=== PATIENT | female | born 1970 | race Caucasian/White ===

== ENCOUNTER 2017-04-15 13:45 | Outpatient (CLI) | payer OTHER ==
--- NOTE | 2017-04-15 17:56 | MRI Preliminary Report ---
Exam: MRI Thoracic Spine W/WO Impressions: 1. Findings of multiple marrow lesions in the thoracic spine, without enhancement suggestive of treat ed lymphoma, chronic moderate compression deformity at T9 without retropulsion. No canal stenosis. Pa tient status post laminectomy T9-T10 to the T12 level, with myelomalacia present within the thoracic cord at T10-T11 as described. No evidence for active disease, findings on the current study suggests treated disease. Otherwise no significant canal stenosis or neural foramina narrowing. [facility] SITE ID: [id number]
--- NOTE | 2017-04-15 17:59 | MRI Report ---
EXAM: MRI THORACIC SPINE WITHOUT AND WITH CONTRAST EXAM DATE: 04/15/2017 03:21 PM. CLINICAL HISTORY: History of lymphoma, chronic lower thoracic, low back pain. COMPARISONS: None. TECHNIQUE: Multiplanar, multisequence T1-weighted and fluid-sensitive sequences of the thoracic spine from C7 to L1 before and after administration of intravenous contrast. IV contrast: 8.5 cc Gadavist. Other: None. Findings: Relevant images are indicated (image number, series number). Catering Director imaging of the cervical spine unremarkable including limited evaluation posterior cranial roselia a contents, as well as the cervical cord. Fatty-replaced marrow is seen at T5, T9, T11 levels with mo derate compression deformity of T9, appears chronic. Postcontrast imaging demonstrates no suspicious marrow enhancement, or cord enhancement. Patient status post decompressive laminectomies from T9-T10 to the T12 level. There is focal suspected linear myelomalacia present within the thoracic cord at T1 1 measuring at least 0.7 cm diameter dorsally, in maximum dimension. There is also associated at leas t mild cord atrophy. Remaining thoracic cord demonstrates no abnormal signal. There is no significant canal stenosis or neural foraminal narrowing present. There is no thoracic paraspinal mass or collec tion. Surrounding skeletal muscle is unremarkable. There is no milton-facet edema. Impressions: 1. Findings of multiple marrow lesions in the thoracic spine, without enhancement suggestive of treat ed lymphoma, chronic moderate compression deformity at T9 without retropulsion. No canal stenosis. Pa tient status post laminectomy T9-T10 to the T12 level, with myelomalacia present within the thoracic cord at T10-T11 as described. No evidence for active disease, findings on the current study suggests treated disease. Otherwise no significant canal stenosis or neural foramina narrowing. [facility] Referring Provider Line: [phone] SITE ID: [id number]
== END 2017-04-15 13:46 | disposition home or self-care (01) ==
LOC: DI 13:45
DX: G95.89 Other specified diseases of spinal cord (principal); M43.8X4 Other specified deforming dorsopathies, thoracic region
CPT/HCPCS: 72157; A9585

== ENCOUNTER 2018-06-25 17:17 | Emergency (ER) | payer SELFPAY ==
[2018-06-25 17:29] VITALS: BP 131/94
--- NOTE | 2018-06-25 17:58 | ED Physician Documentation ---
History of Present Illness - Stated complaint Stated Complaint: PANICK ATTACK - Chief complaint Chief Complaint: General - History obtained from History obtained from: Patient - History of Present Illness Timing: Other (48-year-old woman with a history of anxiety who for the last 4 days has had episodes in the middle the night where she feels like her heart is beating fast and that she is going to . There is no associated chest pain per se. It is worse because she recently had to decrease her propranolol as she is try to make it last longer because her insurance lapsed and she had to divorce her .) Review of Systems Constitutional: denies: Fever, Chills Musculoskeletal: denies: Neck pain, Back pain Neurologic: denies: Syncope Psychiatric: denies: Depressed, Suicidal, Homicidal PD PAST MEDICAL HISTORY - Past Surgical History Past Surgical History: No - Present Medications Home Medications: Ambulatory Orders Medication Instructions Recorded Confirmed ALPRAZolam [Alprazolam] 0.25 mg PO Q4H PRN #15 tablet 06/25/18 Propranolol [Inderal] 10 mg PO BID 06/25/18 06/25/18 Propranolol [Inderal] 10 mg PO BID #90 tablet 06/25/18 - Allergies Allergies/Adverse Reactions: Allergies Allergy/AdvReac Type Severity Reaction Status Date / Time No Known Drug Allergies Allergy Verified 06/25/18 17:44 - Social History Does the pt smoke?: No Smoking Status: Never smoker Does the pt have substance abuse?: No PD ED PE NORMAL - Vitals Vital signs reviewed: Yes - General General: Alert and oriented X 3, No acute distress - Neck Neck: Supple, no meningeal sign, No bony TTP - Cardiac Cardiac: RRR, No murmur - Respiratory Respiratory: No respiratory distress, Clear bilaterally - Extremities Extremities: No edema, No calf tenderness / cord - Neuro Neuro: Alert and oriented X 3, Normal speech Results - Vitals Vitals: Vital Signs - 24 hr 06/25/18 17:25 Temperature 36.2 C L Heart Rate 99 Respiratory 16 Rate Blood Pressure 131/94 H O2 Saturation 100 Oxygen O2 Source Room air - EKG (time done) 1734 Rate: Rate (enter#) (73) Rhythm: NSR [place]: Normal Intervals: Normal [place] QRS: Normal Ischemia: Normal ST segments Computer interpretation: Agree with computer PD MEDICAL DECISION MAKING - ED course ED course: I suspect this is anxiety, she is asymptomatic here without palpitations or findings of ectopy on the monitor. Probably multifactorial because of stressors in her life and having to decrease her propranolol. - Sepsis Event Vital Signs: Vital Signs - 24 hr 06/25/18 17:25 Temperature 36.2 C L Heart Rate 99 Respiratory 16 Rate Blood Pressure 131/94 H O2 Saturation 100 Oxygen O2 Source Room air Departure - Departure Disposition: 01 Home, Self Care Clinical Impression: Palpitations Condition: Good Record reviewed to determine appropriate education?: Yes Instructions: ED Panic Attack Prescriptions: ALPRAZolam [Alprazolam] 0.25 mg PO Q4H PRN #15 tablet PRN Reason: Anxiety Propranolol [Inderal] 10 mg PO BID #90 tablet Comments: Call your doctor to arrange a follow-up appointment, make the next available appointment. In the interim, return anytime if worse or if new symptoms develop. Your blood pressure was elevated today on check into the emergency department. This does not mean that you have hypertension, it is a common phenomenon to come to the emergency department and have elevated blood pressure. I recommend that you see your primary care physician within the week to have it rechecked when you are feeling better.
== END 2018-06-25 18:06 | disposition home or self-care (01) ==
LOC: ED 17:17
DX: R00.2 Palpitations (principal); R03.0 Elevated blood-pressure reading, without diagnosis of hypertension
CPT/HCPCS: 93005; 99283

== ENCOUNTER 2018-08-23 09:33 | Outpatient (CLI) | payer MEDICAID ==
[2018-08-23 13:19] LABS: BASOPHILS # (AUTO) 0.1 10^3/uL (0.0-0.1); BASOPHILS % (AUTO) 1.2 %; EOSINOPHILS # (AUTO) 0.1 10^3/uL (0.0-0.7); EOSINOPHILS % (AUTO) 2.5 %; HGB - HEMOGLOBIN 11.2 g/dL (12.0-16.0); LYMPHOCYTES # (AUTO) 1.1 10^3/uL (1.5-3.5); LYMPHOCYTES % (AUTO) 22.8 %; MEAN CORPUSCULAR HEMOGLOBIN 30.4 pg (27.0-31.0); MEAN CORPUSCULAR VOLUME 89.4 fL (81.0-99.0); MEAN PLATELET VOLUME 8.7 fL (7.9-10.8); MONOCYTES # (AUTO) 0.5 10^3/uL (0.0-1.0); MONOCYTES % (AUTO) 10.2 %; NEUTROPHILS # (AUTO) 3.2 10^3/uL (1.5-6.6); NEUTROPHILS % (AUTO) 63.3 %; PLT - PLATELET COUNT 262 10^3/uL (130-450); RED BLOOD COUNT 3.69 10^6/uL (4.20-5.40); RED CELL DISTRIBUTION WIDTH 13.3 % (12.0-15.0)
[2018-08-23 13:57] LABS: % IRON SATURATION 42 % (20-50); ALBUMIN 4.1 g/dL (3.2-5.5); ALBUMIN/GLOBULIN RATIO 1.3 (1.0-2.2); ALKALINE PHOSPHATASE 54 IU/L (42-121); ALT ALANINE AMINOTRANSFERASE 21 IU/L (10-60); AST ASPARTATE AMINOTRANSFERASE 24 IU/L (10-42); BILIRUBIN,TOTAL 0.7 mg/dL (0.2-1.0); BUN - BLOOD UREA NITROGEN 16 mg/dL (6-20); CALCIUM 8.6 mg/dL (8.5-10.3); CARBON DIOXIDE - CO2 26 mmol/L (21-32); CHLORIDE 104 mmol/L (101-111); CHOL/HDL RATIO 2.7 (<4.4); CHOLESTEROL 172 mg/dL; CREATININE 0.6 mg/dL (0.4-1.0); GFR - MDRD 107 (>89); GLUCOSE 102 mg/dL (70-100); HDL CHOLESTEROL 63 mg/dL; IRON 190 ug/dL (28-170); SODIUM 138 mmol/L (135-145); TOTAL IRON BINDING CAPACITY 448 ug/dL (250-450); TOTAL PROTEIN 7.2 g/dL (6.7-8.2); TRANSFERRIN 320 mg/dL (192-382)
[2018-08-23 14:04] LABS: THYROID STIMULATING HORMONE 0.85 uIU/mL (0.34-5.60)
[2018-08-23 14:10] LABS: FERRITIN 5.7 ng/mL (11.0-306.8)
[2018-08-23 14:26] LABS: LDL CHOLESTEROL,DIRECT 95 mg/dL; LDLD/HDL RATIO 1.5 (<4.4)
== END 2018-08-23 09:34 ==
LOC: LAB.WCP 09:33
PROVIDERS: ATTEND Physician Assistant Medical
DX: Z00.00 Encounter for general adult medical examination without abnormal findings (principal); D50.9 Iron deficiency anemia, unspecified
CPT/HCPCS: 36415; 80053; 80061; 82728; 83540; 83721; 84443; 84466; 85025

== ENCOUNTER 2018-09-13 12:41 | Outpatient (CLI) | payer MEDICAID ==
--- NOTE | 2018-09-23 09:41 | Mammography Report ---
Reason: BILAT SCREEN w OSWALDO Procedure Date: 09/13/2018 Accession Number: [id number] / [id number] Procedure: ANUM - Screening Mammo w/Oswaldo CPT Code: FULL RESULT: EXAM: Screening Mammo w/Oswaldo DATE: 09/13/2018 1:33 PM CLINICAL HISTORY: 48-year-old female with history of late childbearing and history of benign breast biopsy. TECHNIQUE: Bilateral CC and MLO views were obtained. COMPARISON: 12/29/2016, 01/16/2016 FINDINGS: The breasts demonstrate heterogeneously dense fibroglandular parenchyma bilaterally. No suspicious masses, clustered microcalcifications, or regions of architectural distortion are identified. IMPRESSION: Negative examination RECOMMENDATION: Routine annual screening unless otherwise clinically indicated. BIRADS CATEGORY 1: Negative STANDARD QUALIFYING STATEMENTS: 1. This examination was not reviewed with the aid of Computer-Aided Detection (CAD). 2. A negative or benign imaging report should not delay biopsy if clinically suspicious findings are present. Consider surgical consultation if warrented. More than 5% of cancers are not identified by imaging. 3. Dense breasts may obscure an underlying neoplasm. 4. This examination was reviewed with the aid of 3D breast imaging (tomosynthesis).
== END 2018-09-13 12:42 | disposition home or self-care (01) ==
LOC: DI 12:41
PROVIDERS: ATTEND Physician Assistant Medical
DX: Z12.31 Encounter for screening mammogram for malignant neoplasm of breast (principal)
CPT/HCPCS: 77063; 77067

== ENCOUNTER 2018-10-24 08:00 | Outpatient (CLI) | payer MEDICAID | END 2018-10-24 23:59 | disposition home or self-care (01) | LOC: LAB.R 08:00 | PROVIDERS: ATTEND Physician Assistant Medical | DX: R10.13 Epigastric pain (principal) | CPT/HCPCS: 83013 ==

== ENCOUNTER 2018-12-13 09:38 | Outpatient (CLI) | payer MEDICAID ==
--- NOTE | 2018-12-13 14:27 | Ultrasound Report ---
Reason: ABDOMINAL PAIN,RIGHT UPPER QUADRANT,EARLY SATIETY, Procedure Date: 12/13/2018 Accession Number: [id number] / [id number] Procedure: US - Abdomen Limited CPT Code: FULL RESULT: EXAM: ABDOMEN ULTRASOUND LIMITED, RUQ EXAM DATE: 12/13/2018 10:20 AM. CLINICAL HISTORY: Abdominal pain, right upper quadrant, early satiety. COMPARISON: None. TECHNIQUE: Real-time scanning was performed with static images obtained. FINDINGS: Liver: Slightly nodular surface contour with heterogeneous parenchymal echotexture. Right lobe of the liver measures at least 19.2 cm. Main portal vein flow: Hepatopetal. Gallbladder: Mobile cholelithiasis with normal wall thickness and negative sonographic Gates's sign. No wall thickening. Biliary System: CBD measures 5 mm. No intrahepatic or extrahepatic ductal dilatation. Other: None. IMPRESSION: Cholelithiasis. Heterogeneous echotexture of the liver with mild surface nodularity. [facility]
== END 2018-12-13 09:39 | disposition home or self-care (01) ==
LOC: DI 09:38
PROVIDERS: ATTEND Physician Assistant Medical
DX: K80.20 Calculus of gallbladder without cholecystitis without obstruction (principal)
CPT/HCPCS: 76705

== ENCOUNTER 2019-01-24 08:49 | Outpatient (CLI) | payer MEDICAID ==
[2019-01-24 09:06] LABS: BASOPHILS # (AUTO) 0.1 10^3/uL (0.0-0.1); BASOPHILS % (AUTO) 1.1 %; EOSINOPHILS # (AUTO) 0.1 10^3/uL (0.0-0.7); HGB - HEMOGLOBIN 11.8 g/dL (12.0-16.0); LYMPHOCYTES # (AUTO) 1.4 10^3/uL (1.5-3.5); MEAN CORPUSCULAR HEMOGLOBIN 29.4 pg (27.0-31.0); MEAN CORPUSCULAR HGB CONC 33.1 g/dL (32.0-36.0); MEAN CORPUSCULAR VOLUME 88.9 fL (81.0-99.0); MEAN PLATELET VOLUME 7.9 fL (7.9-10.8); MONOCYTES # (AUTO) 0.8 10^3/uL (0.0-1.0); MONOCYTES % (AUTO) 11.5 %; NEUTROPHILS # (AUTO) 4.4 10^3/uL (1.5-6.6); NEUTROPHILS % (AUTO) 64.4 %; PLT - PLATELET COUNT 262 10^3/uL (130-450); RED BLOOD COUNT 3.99 10^6/uL (4.20-5.40); RED CELL DISTRIBUTION WIDTH 14.5 % (12.0-15.0); WHITE BLOOD COUNT 6.8 x10^3/uL (4.8-10.8)
[2019-01-24 09:38] LABS: ALBUMIN 3.9 g/dL (3.2-5.5); ALBUMIN/GLOBULIN RATIO 1.1 (1.0-2.2); BILIRUBIN,TOTAL 0.8 mg/dL (0.2-1.0); CREATININE 0.6 mg/dL (0.4-1.0); TOTAL PROTEIN 7.3 g/dL (6.7-8.2)
== END 2019-01-24 08:50 | disposition home or self-care (01) ==
LOC: LAB 08:49
PROVIDERS: ATTEND Internal Medicine Gastroenterology
DX: K80.20 Calculus of gallbladder without cholecystitis without obstruction (principal); R00.2 Palpitations
CPT/HCPCS: 36415; 80053; 83690; 85025; 93005

== ENCOUNTER 2019-03-03 08:56 | Outpatient (CLI) | payer MEDICAID ==
[2019-03-03 12:59] LABS: BASOPHILS # (AUTO) 0.1 10^3/uL (0.0-0.1); EOSINOPHILS # (AUTO) 0.2 10^3/uL (0.0-0.7); EOSINOPHILS % (AUTO) 3.4 %; HGB - HEMOGLOBIN 10.7 g/dL (12.0-16.0); LYMPHOCYTES # (AUTO) 1.4 10^3/uL (1.5-3.5); LYMPHOCYTES % (AUTO) 19.9 %; MEAN CORPUSCULAR HEMOGLOBIN 29.9 pg (27.0-31.0); MEAN CORPUSCULAR HGB CONC 33.5 g/dL (32.0-36.0); MEAN CORPUSCULAR VOLUME 89.3 fL (81.0-99.0); MONOCYTES # (AUTO) 0.7 10^3/uL (0.0-1.0); MONOCYTES % (AUTO) 9.6 %; NEUTROPHILS # (AUTO) 4.8 10^3/uL (1.5-6.6); NEUTROPHILS % (AUTO) 66.1 %; PLT - PLATELET COUNT 232 10^3/uL (130-450); RED BLOOD COUNT 3.57 10^6/uL (4.20-5.40); WHITE BLOOD COUNT 7.3 x10^3/uL (4.8-10.8)
[2019-03-03 13:41] LABS: BUN - BLOOD UREA NITROGEN 14 mg/dL (6-20); CALCIUM 8.3 mg/dL (8.5-10.3); CARBON DIOXIDE - CO2 26 mmol/L (21-32); CHLORIDE 106 mmol/L (101-111); CHOL/HDL RATIO 2.3 (<4.4); CHOLESTEROL 145 mg/dL; CREATININE 0.5 mg/dL (0.4-1.0); GFR - MDRD 131 (>89); GLUCOSE 90 mg/dL (70-100); HDL CHOLESTEROL 62 mg/dL; LDL CHOLESTEROL,CALCULATED 75 mg/dL; LDL/HDL RATIO 1.2 (<4.4); SODIUM 137 mmol/L (135-145); VLDL CHOLESTEROL 8 mg/dL
== END 2019-03-03 23:59 ==
LOC: LAB.WCP 08:56
PROVIDERS: ATTEND Internal Medicine Cardiovascular Disease
DX: Z00.00 Encounter for general adult medical examination without abnormal findings (principal); R00.2 Palpitations
CPT/HCPCS: 36415; 80048; 80061; 83721; 84443; 85025

== ENCOUNTER 2019-05-30 12:43 | Outpatient (CLI) | payer BC ==
--- NOTE | 2019-05-30 15:39 | XRAY Report ---
Reason: FOOT PAIN, RIGHT Procedure Date: 05/30/2019 Accession Number: [id number] / [id number] Procedure: XR - Foot 3 View RT CPT Code: FULL RESULT: EXAM: RIGHT FOOT RADIOGRAPHY EXAM DATE: 05/30/2019 01:34 PM. CLINICAL HISTORY: Plantar foot pain when standing and walking. COMPARISON: None. TECHNIQUE: 3 views. FINDINGS: Bones: No significant inferior calcaneal spurring. No fractures or bone lesions. Joints: Normal. No subluxations. Soft Tissues: No abnormal soft tissue swelling or radiopaque foreign body. No abnormal calcifications along the plantar surface. IMPRESSION: Normal foot radiography. [facility]
== END 2019-05-30 12:44 | disposition home or self-care (01) ==
LOC: DI 12:43
PROVIDERS: ATTEND Family Medicine
DX: M79.671 Pain in right foot (principal)

== ENCOUNTER 2019-08-16 12:28 | Outpatient (CLI) | payer BC ==
--- NOTE | 2019-08-16 14:27 | MRI Report ---
Reason: LYMPHOMA Procedure Date: 08/16/2019 Accession Number: [id number] / [id number] Procedure: MRI - Lumbar Spine W/O CPT Code: FULL RESULT: EXAM: MRI LUMBAR SPINE WITHOUT CONTRAST EXAM DATE: 08/16/2019 01:12 PM. CLINICAL HISTORY: History of lymphoma. Patient complains of low back pain. History of previous spine surgery in 1996. COMPARISON: THORACIC SPINE W/WO 04/15/2017 2:00 PM. TECHNIQUE: Multiplanar, multisequence T1-weighted and fluid-sensitive sequences of the lumbar spine from T12 to S1 without contrast. Other: None. FINDINGS: Spinal Canal: The conus terminates at L1. Unremarkable appearance of the conus medullaris. Compared to prior MRI, stable appearing focus of abnormal T2 hyperintensity in the lower thoracic cord at the upper T11 level consistent with a focus of chronic myelomalacia versus stable chronic short focus of syringomyelia. Alignment: Approximately 13 degrees of broad-based lumbar levoscoliosis. Minimal degenerative leftward lateral subluxation of L3 on L4. Minimal to mild degenerative L5 on S1 anterolisthesis is also present. Bone Marrow: Five [id number] lumbar vertebral bodies are assumed. Mild to moderate chronic appearing L3 vertebral body anterior wedge compression deformity that appears to be from inferior endplate collapse, with secondary arthritic changes. Extensive abnormal signal and morphology of the T11 vertebral body is present, not significantly changed from prior. Stable central T11 superior endplate concavity. Stable chronic appearing mixed signal abnormality of the T11 vertebral body with a significant T1 hyperintense component suggesting a benign fat-containing component. Hypointense signal inferiorly is also present, possibly from prior vertebral body percutaneous augmentation. Again seen are findings of now chronic previous laminectomies in the lower thoracic spine at T10 and T11. Disk Levels/Facets: T12-L1: Stable, no developing stenosis or disk herniation. L1-L2: Mild chronic disk degeneration and facet arthropathy. Chronic appearing L2 superior endplate Schmorl's node, unchanged from prior. No developing stenosis. L2-L3: Moderate disk degeneration with circumferential bulge and marginal spurring. Mild facet arthropathy. Patent central canal. No significant foraminal stenosis. L3-L4: Moderate disk degeneration. Mild to moderate facet arthropathy. Circumferential disk bulge with marginal spurring. No significant central stenosis. Foraminal stenosis appears mild to moderate bilaterally. L4-L5: Minimally narrowed disk space. Shallow circumferential disk bulge. Mild facet arthropathy. Patent central canal. Minimal foraminal stenosis on the right. L5-S1: Mild disk degeneration. Moderate facet arthropathy. Shallow circumferential disk bulge but no focal extrusion. Minimal foraminal stenosis. Widely patent central canal and lateral recesses. Musculature: Mild diffuse fatty atrophy. Other: Nonspecific marrow signal abnormality on both sides of the right SI joint but especially in the iliac bone. This may be asymmetric degenerative change. The right SI joint does not appear ankylosed. This is more likely degenerative than neoplastic or infectious. The immediately adjacent soft tissues anteriorly are intact. IMPRESSION: 1. Chronic appearing degenerative changes throughout the lumbar spine, especially notable for example at L3-L4 but without evidence for high-grade stenosis or definite focal neural impingement. 2. Mild lumbar levoscoliosis. 3. Chronic surgical changes posteriorly in the lower thoracic spine accompanied by a stable small focus of abnormal T2 hyperintense signal at the lower thoracic cord at the upper T11 level. 4. No evidence for new or acute appearing marrow signal abnormalities. 5. Nonspecific asymmetric marrow signal abnormalities adjacent to the right SI joint. This is more likely degenerative than neoplastic or infectious. As clinically warranted this could be further characterized with dedicated MRI of the pelvis. Comment: The following findings are so common in adults without low back pain that while we report their presence, they must be interpreted with caution and in the context of the clinical situation. (Reference Yesicak et al, Spine 2001) Prevalence of findings in patients without low back pain: Disk degeneration (any evidence): 92% Disk desiccation/T2 signal loss: 83% Disk height loss: 56% Disk bulge: 64% Disk protrusion: 32% Annular tear/high intensity zone: 38% [facility]
== END 2019-08-16 12:29 | disposition home or self-care (01) ==
LOC: DI 12:28
PROVIDERS: ATTEND Family Medicine
DX: M51.36 Other intervertebral disc degeneration, lumbar region (principal); M41.86 Other forms of scoliosis, lumbar region; C85.90 Non-Hodgkin lymphoma, unspecified, unspecified site
CPT/HCPCS: 72148

== ENCOUNTER 2019-09-01 09:10 | Outpatient (CLI) | payer BC ==
--- NOTE | 2019-09-01 14:24 | MRI Report ---
Reason: BILAT SACROILIAC JOINT PAIN Procedure Date: 09/01/2019 Accession Number: [id number] / [id number] Procedure: MRI - Pelvis W/O CPT Code: FULL RESULT: EXAM: MRI SACRUM/SI JOINTS WITHOUT CONTRAST EXAM DATE: 09/01/2019 09:31 AM. CLINICAL HISTORY: Bilateral sacroiliac joint pain. COMPARISON: MRI LUMBAR SPINE W/O 08/16/2019 1:02 PM. TECHNIQUE: Sagittal T1 and STIR. Oblique coronal T1. Patient unable to hold still. Patient unable to tolerate remainder of routine examination. FINDINGS: Bones and articular surfaces: Sacroiliac joints are only partially imaged in the coronal plane. No axial images. No acute fracture identified within the field of view. Asymmetric degenerative change and iliac sclerosis at the right sacroiliac joint. Patient motion and limited sequences prohibit further detailed evaluation. IMPRESSION: 1. Limited noncontrast MRI of the sacrum consisting of 3 pulse sequences with motion artifact. Patient unable to tolerate exam. 2. Asymmetric degenerative changes are partially visualized in the right sacroiliac joint, better visualized on the lumbar spine MRI. No acute fracture identified. [facility]
== END 2019-09-01 09:11 | disposition home or self-care (01) ==
LOC: DI 09:10
PROVIDERS: ATTEND Family Medicine
DX: M53.3 Sacrococcygeal disorders, not elsewhere classified (principal)
CPT/HCPCS: 72195

== ENCOUNTER 2019-12-12 08:00 | Outpatient (CLI) | payer BC | END 2019-12-12 23:59 | disposition home or self-care (01) | LOC: LAB.WCP 08:00 | PROVIDERS: ATTEND Internal Medicine Cardiovascular Disease | DX: I47.2 Ventricular tachycardia (principal) | CPT/HCPCS: 36415; 83735 ==

== ENCOUNTER 2020-12-03 16:51 | Outpatient (CLI) | payer MEDICAID ==
--- OUTSIDE RECORDS SUMMARY | 2020-12-04 04:53 | EXTERNAL MEDICAL SUMMARY RPT | Continuity of Care Document ---
:1970 Demographics Phone Unavailable Preferred Language Uzbek Marital Status Unknown Temple Affiliation Unknown Race Unknown Ethnic Group Unknown Author Organization [place] Address [address] [phone] Phone Care Team Providers Name Role Phone , Michele Ignacio, Unavailable Unavailable Trev Naqvi Unavailable Unavailable Problems date description facility 2018-08-23 09:33 IRON DEFICIENCY ANEMIA, [facility] UNSPECIFIED 2018-08-23 09:33 ENCNTR FOR [facility] EXAM W/O ABNORMAL FINDINGS 2018-09-13 12:41 [facility]NC[facility]TR [facility] MAL[facility]NANT NEOPLASM OF BREAST 2018-10-24 08:00 EPIGASTRIC PAIN Formerly [facility] 2018-12-13 09:38 CALCULUS OF GALLBLADDER W[facility]O [facility] CHOLECYSTITIS W/O OBSTRUCTION 2019-01-24 08:49 CALCULUS OF GALLBLADDER W[facility]O [facility] CHOLECYSTITIS W/O OBSTRUCTION 2019-01-24 08:49 PALPITATIONS Formerly [facility] 2019-03-03 08:56 PALPITATIONS Formerly [facility] 2019-03-03 08:56 ENCNTR FOR [facility] EXAM W/O ABNORMAL FINDINGS 2020-11-05 00:00:00 US PELVIC/TRANSVAGINAL [facility] Primary Care [facility] 2020-11-05 00:00:00 TSH WITH REFLEX TO FT4 [facility] Primary Care [facility] 2020-11-05 00:00:00 Other disorders of menstruation [facility] and other abnormal bleeding from [place] [facility] female genital tract 2020-11-05 00:00:00 Asymptomatic postmenopausal [facility] status (age-related) (natural) [place] [facility] 2020-11-05 00:00:00 Other screening mammogram [facility] 2020-11-05 00:00:00 Screening for diabetes mellitus [facility] [place] [facility] 2020-11-05 00:00:00 Screening [facility]oid disorders [facility] [place] [facility] 2020-11-05 00:00:00 Screening for other and [facility] unspecified endocrine, [facility] nutritional, metabolic, and immunity disorders 2020-11-05 00:00:00 [facility]:00 VITAMIN D, 25-OH TOTAL, IA [facility] [place] [facility] 2020-11-05 00:00:00 [facility] 2020-[facility]05 00:00:00 2HR GTT [facility] 2020-11-05 00:00:00 Follicle Stimulating Hormone [facility] (FSH) [facility] 2020-11-05 00:00:00 Glycohemoglobin (A1C) [facility] 2020-11-05 00:00:00 CBC AND PLATELETS w/o DIFF [facility] 2020-11-05 00:00:00 Other specified [facility] and vaginal bleeding [facility] 2020-11-05 00:00:00 Menopausal and female [facility] climacteric states [facility] 2020-11-05 00:00:00 [facility]oplasm [place] [facility] 2020-11-05 00:00:00 Encounter for screening for [facility] diabetes mellitus [place] [facility] 2020-11-05 00:00:00 Encounter for screening for [facility] nutritional disorder [place] [facility] 2020-11-05 00:00:00 Encounter for screening for [facility] lipoid disorders [facility] 2020-11-05 00:00:00 Diabetes mellitus screening [facility] 2020-11-05 00:00:00 Health-related behavior [facility] [place] [facility] 2020-11-05 00:00:00 Tobacco use and exposure [facility] [place] [facility] 2020-11-05 00:00:00 Screening mammography [facility] [place] [facility] 2020-11-05 00:00:00 Exercise [facility] [facility] 2020-11-05 00:00:00 [facility] smoker [facility] 2020-11-05 00:00:00 Cholesterol screening [facility] [place] [facility] 2020-11-05 00:00:00 Menopause finding [facility] [place] [facility] 2020-11-05 00:00:00 Procedure carried out on subject [facility] [place] [facility] 2020-11-05 00:00:00 Abnormal uterine bleeding [facility] 2020-11-05 00:00:00 Alcohol use [facility] 2020-11-05 00:00:00 Tobacco smoking status NHIS [facility] 2020-11-05 00:00:00 Total score? [facility] [place] [facility] Allergies date description facility NO KNOWN ALLERGIES [facility] P[facility]ALIN [facility] PSEUDOEPHEDRINE HCL [facility] GABAPENTIN [facility] ERYTHROMYCIN [facility] CODEINE SULFATE [facility] ENALAPRIL MALEATE [facility] HYDROCODONE [facility] METFORMIN [facility] Social History date description facility 2020-11-05 00:00:00 Never smoker [facility] [facility] Social History date description facility 2020-11-05 00:00:00 Never smoker [facility] date description facility [id number]
--- NOTE | 2020-12-04 10:01 | Ultrasound Report ---
PROCEDURE: Pelvic w/Transvaginal INDICATIONS: ABNORMAL UTERINE BLEEDING TECHNIQUE: Real-time scanning was performed of the pelvic organs, with image documentation. Additional endovagi nal scanning was necessary due to incomplete visualization of the adnexal and endometrial structures by transabdominal scanning. COMPARISON: Pelvic MR 09/01/2019. FINDINGS: Transabdominal scanning: Limited scanning through the kidneys shows no hydronephrosis. No pathologi c free abdominal or pelvic fluid. Endovaginal scanning: Uterus: Uterus is normal in size at 8.6 x 4.2 x 5.7 cm. The endometrium measures 7 mm in combined t hickness. Intrauterine device is present in appropriate position. The uterus has an appearance of di ffuse heterogeneous echogenicity suggestive of multiple fibroids. The largest foci are identified as follows: Mid, anterior intramural focus of heterogeneous echogenicity measuring 10 x 9 x 11 mm,. A l eft anterior submucosal region measuring 10 x 12 x 1 mm, fundal, intramural focus measuring 12 x 11 x 13 mm. Nabothian cyst is noted. Ovaries: Right ovary measures 2.4 x 1.1 x 1.2 cm, volume 1.7 cc. Left ovary measures 1.8 x 1.1 x 1.2 cm, volume 1.3 cc. Multiple follicles are noted bilaterally, less than 1 cm. IMPRESSION: Diffuse appearance of multiple uterine fibroids with the largest foci measured as above. Reviewed by: Milagro Adhikari MD on 12/04/2020 10:00 AM PST Approved by: Milagro Adhikari MD on 12/04/2020 10:00 AM PST Station ID: [id number]
== END 2020-12-03 16:52 | disposition home or self-care (01) ==
LOC: DI 16:51
PROVIDERS: ATTEND Obstetrics & Gynecology
DX: N93.8 Other specified abnormal uterine and vaginal bleeding (principal); D25.1 Intramural leiomyoma of uterus; D25.0 Submucous leiomyoma of uterus; Z97.5 Presence of (intrauterine) contraceptive device

== ENCOUNTER 2021-01-02 10:15 | Outpatient (CLI) | payer MEDICAID ==
[2021-01-02 10:34] LABS: HGB - HEMOGLOBIN 11.5 g/dL (12.0-16.0); MEAN CORPUSCULAR HEMOGLOBIN 29.9 pg (27.0-31.0); MEAN CORPUSCULAR HGB CONC 31.9 g/dL (32.0-36.0); MEAN CORPUSCULAR VOLUME 93.5 fL (81.0-99.0); MEAN PLATELET VOLUME 9.8 fL (7.9-10.8); RED BLOOD COUNT 3.85 10^6/uL (4.20-5.40); RED CELL DISTRIBUTION WIDTH 12.8 % (12.0-15.0); WHITE BLOOD COUNT 5.5 x10^3/uL (4.8-10.8)
[2021-01-02 10:56] LABS: CHOL/HDL RATIO 2.9 (<4.4); CHOLESTEROL 178 mg/dL; HDL CHOLESTEROL 61 mg/dL; LDL CHOLESTEROL,CALCULATED 107 mg/dL; LDL/HDL RATIO 1.8 (<4.4); VLDL CHOLESTEROL 10 mg/dL
[2021-01-02 11:56] LABS: HEMOGLOBIN A1c% 5.7 % (4.27-6.07)
== END 2021-01-02 10:16 | disposition home or self-care (01) ==
LOC: LAB 10:15
PROVIDERS: ATTEND Obstetrics & Gynecology
DX: Z00.00 Encounter for general adult medical examination without abnormal findings (principal); N93.8 Other specified abnormal uterine and vaginal bleeding; Z13.220 Encounter for screening for lipoid disorders; Z13.21 Encounter for screening for nutritional disorder; Z13.1 Encounter for screening for diabetes mellitus
CPT/HCPCS: 36415; 80061; 82306; 82951; 83036; 83721; 84443; 85027

== ENCOUNTER 2021-01-02 10:48 | Outpatient (CLI) | payer MEDICAID ==
--- NOTE | 2021-01-03 11:06 | Mammography Report ---
BILATERAL DIGITAL SCREENING MAMMOGRAM 3D/2D: 01/02/2021 CLINICAL: Routine screening. Comparison is made to exams dated: 09/13/2018 mammogram - [facility], 12/29/2016 [facility], and 01/16/2016 mammogram - [facility]. The tissue of both breasts is heterogen eously dense. This may lower the sensitivity of mammography. There is an oval low density asymmetry with an obscured and circumscribed margin in the left breast a nterior depth medial region seen on the craniocaudal view only. No other significant masses, calcifications, or other findings are seen in either breast. IMPRESSION: INCOMPLETE: NEEDS ADDITIONAL IMAGING EVALUATION The oval low density asymmetry in the left breast is indeterminate. Mediolateral and spot compressio n views as well as additional views with possible ultrasound are recommended. This exam was interpreted at Station ID: [id number]. NOTE: For mammograms, a report in lay terms will be sent to the patient. Approximately 15% of breast malignancies will not be visualized mammographically. In the management of a palpable breast mass, a negative mammogram must not discourage biopsy of a clinically suspicious lesion. Electronically Signed By: Alejandro Lee M.D. ddp/penrad:01/02/2021 14:20:07 ACR BI-RADS Category 0: Incomplete 3340F PARENCHYMAL PATTERN: (D) - The breast(s) demonstrate(s) heterogeneously dense fibroglandular justin alvarenga. BI-RADS CATEGORY: (0) - 0 Mammo and [place] [id number] Immediate follow-up LATERALITY: (B)
== END 2021-01-02 10:49 | disposition home or self-care (01) ==
LOC: DI 10:48
PROVIDERS: ATTEND Obstetrics & Gynecology
DX: Z00.00 Encounter for general adult medical examination without abnormal findings (principal); Z12.31 Encounter for screening mammogram for malignant neoplasm of breast; N93.8 Other specified abnormal uterine and vaginal bleeding; Z13.220 Encounter for screening for lipoid disorders; Z13.21 Encounter for screening for nutritional disorder; Z13.1 Encounter for screening for diabetes mellitus
CPT/HCPCS: 36415; 80061; 82306; 82951; 83036; 83721; 84443; 85027

== ENCOUNTER 2021-01-28 10:53 | Outpatient (CLI) | payer MEDICAID ==
--- NOTE | 2021-01-29 12:54 | Mammography Report ---
UNILATERAL LEFT DIGITAL DIAGNOSTIC MAMMOGRAM 3D/2D: 01/28/2021 CLINICAL: Patient returns today to evaluate a focal asymmetry in the left breast. Comparison is made to exams dated: 01/02/2021 mammogram, 09/13/2018 mammogram - [facility], 12/29/2016 mammogram, and 01/16/2016 mammogram - [facility]. The tissue of left breast is heterogeneously dense. This may lower the sensitivity of mammography. There is a 1.1 cm asymmetry in the left breast anterior depth medial region seen on the craniocaudal view only 3.6 cm from the nipple. No other significant masses or calcifications are seen in the nick st. IMPRESSION: INCOMPLETE: NEEDS ADDITIONAL IMAGING EVALUATION The 1.1 cm asymmetry in the left breast is indeterminate. An ultrasound is recommended and has been scheduled to immediately follow. This exam was interpreted at Station ID: [id number]. NOTE: For mammograms, a report in lay terms will be sent to the patient. Approximately 15% of breast malignancies will not be visualized mammographically. In the management of a palpable breast mass, a negative mammogram must not discourage biopsy of a clinically suspicious lesion. Electronically Signed By: Sachin Guerrero M.D. jr/:01/28/2021 11:46:39 ACR BI-RADS Category 0: Incomplete 3340F PARENCHYMAL PATTERN: (D) - The breast(s) demonstrate(s) heterogeneously dense fibroglandular justin alvarenga. BI-RADS CATEGORY: (0) - 0 Ultrasound [id number] Immediate follow-up LATERALITY: (B)
--- NOTE | 2021-01-29 12:54 | Ultrasound Report ---
LIMITED ULTRASOUND OF LEFT BREAST: 01/28/2021 CLINICAL: Patient returns for additional imaging over a suspected mass in the left breast. Comparison is made to exams dated: 01/28/2021 mammogram, 01/02/2021 mammogram, 09/13/2018 mammogram - [facility], 12/29/2016 mammogram, and 01/16/2016 mammogram - [facility]. Ultrasound of the left breast 8-9 o'clock region was performed. The asymmetry questioned on the prior screening mammogram is a simple cyst measuring 1.1 cm. at the 9 :00 position. IMPRESSION: NEGATIVE There is no sonographic evidence of malignancy. The asymmetry questioned on the prior screening mammogram is a simple cyst measuring 1.1 cm. at the 9 :00 position. Return to annual mammogram screening schedule is recommended. This exam was interpreted at Station ID: [id number]. Electronically Signed By: Sachin Guerrero M.D. jr/:01/28/2021 12:16:21 Ultrasound BI-RADS: 1 Negative BI-RADS CATEGORY: (1) - 1 Mammogram [id number] return to screening LATERALITY: (B)
== END 2021-01-28 10:54 | disposition home or self-care (01) ==
LOC: DI 10:53
PROVIDERS: ATTEND Obstetrics & Gynecology
DX: R92.8 Other abnormal and inconclusive findings on diagnostic imaging of breast (principal); N60.02 Solitary cyst of left breast

== ENCOUNTER 2021-02-05 15:17 | Outpatient (CLI) | payer MEDICAID ==
[2021-02-06 12:43] LABS: HEPATITIS C ANTIBODY NON-REACTIVE (NON-REACTIVE)
[2021-02-06 13:26] LABS: HIV AG/AB 4TH GEN NON-REACTIVE (NON-REACTIVE)
[2021-02-07 13:26] LABS: HSV 2 IGG TYPE SPECIFIC AB <0.90 index
[2021-02-24 11:11] LABS: HEPATITIS B SURFACE ANTIGEN Non-reactive
== END 2021-02-05 15:18 | disposition home or self-care (01) ==
LOC: LAB 15:17
PROVIDERS: ATTEND Obstetrics & Gynecology
DX: Z11.3 Encounter for screening for infections with a predominantly sexual mode of transmission (principal)
CPT/HCPCS: 36415; 81599; 86592; 86695; 86696; 86803; 87340; 87350; 87389

== ENCOUNTER 2021-10-13 14:29 | Outpatient (CLI) | payer MEDICAID ==
[2021-10-15 09:41] LABS: TB1-NIL 0.04 IU/mL; TB2-NIL 0.05 IU/mL
== END 2021-10-13 14:30 | disposition home or self-care (01) ==
LOC: LAB 14:29
PROVIDERS: ATTEND Family Medicine
DX: Z02.1 Encounter for pre-employment examination (principal)
CPT/HCPCS: 36415; 86317; 86480; 86735; 86762; 86765; 86787

== ENCOUNTER 2022-09-16 15:43 | Outpatient (CLI) | payer MEDICAID ==
--- NOTE | 2022-09-17 14:15 | Mammography Report ---
BILATERAL DIGITAL SCREENING MAMMOGRAM 3D/2D: 09/16/2022 CLINICAL: Routine screening. Comparison is made to exams dated: 01/28/2021 ultrasound, 01/28/2021 mammogram, 01/02/2021 mammogram, mammogram - [facility], 12/29/2016 mammogram, and 01/16/2016 mammogram - [facility]. Both breasts are heterogeneously dense, which may obscure small masses (category c / 51-75% glandular tissue). There is a new 0.5 cm oval equal density focal asymmetry in the right breast at 6 o'clock anterior de pth. No other significant masses, calcifications, or other findings are seen in either breast. IMPRESSION: INCOMPLETE: NEEDS ADDITIONAL IMAGING EVALUATION The new 0.5 cm oval equal density focal asymmetry in the right breast resembles a cyst or a lymph nod e and is indeterminate. Additional views with possible ultrasound are recommended. Based on the Tyrer Cuzick model (a risk assessment model) the patients lifetime risk is 14.5% and he r 10 year risk is 3.8%. According to the ACR, ACS, and NCCN guidelines, an annual breast MRI exam eliz ng with mammogram is recommended if the patients lifetime risk is 20% or greater. This exam was interpreted at Station ID: [id number]. NOTE: For mammograms, a report in lay terms will be sent to the patient. Approximately 15% of breast malignancies will not be visualized mammographically. In the management of a palpable breast mass, a negative mammogram must not discourage biopsy of a clinically suspicious lesion. Electronically Signed By: Salvador Conroy M.D. aty/:09/17/2022 09:20:25 ACR BI-RADS Category 0: Incomplete 3340F PARENCHYMAL PATTERN: (D) - The breast(s) demonstrate(s) heterogeneously dense fibroglandular parenchy ma. BI-RADS CATEGORY: (0) - 0 Mammo and [place] [id number] Immediate follow-up LATERALITY: (R)
== END 2022-09-16 15:44 | disposition home or self-care (01) ==
LOC: DI.N 15:43
PROVIDERS: ATTEND Family Medicine
DX: Z12.31 Encounter for screening mammogram for malignant neoplasm of breast (principal); R92.8 Other abnormal and inconclusive findings on diagnostic imaging of breast

== ENCOUNTER 2022-09-16 16:05 | Outpatient (CLI) | payer MEDICAID ==
[2022-09-16 18:02] LABS: BASOPHILS # (AUTO) 0.1 10^3/uL (0.0-0.1); BASOPHILS % (AUTO) 1.2 %; EOSINOPHILS # (AUTO) 0.2 10^3/uL (0.0-0.7); EOSINOPHILS % (AUTO) 2.6 %; HCT - HEMATOCRIT 37.1 % (37.0-47.0); HGB - HEMOGLOBIN 11.8 g/dL (12.0-16.0); LYMPHOCYTES % (AUTO) 28.8 %; MEAN CORPUSCULAR HEMOGLOBIN 28.2 pg (27.0-31.0); MEAN CORPUSCULAR HGB CONC 31.8 g/dL (32.0-36.0); MEAN CORPUSCULAR VOLUME 88.5 fL (81.0-99.0); MEAN PLATELET VOLUME 10.7 fL (7.9-10.8); MONOCYTES # (AUTO) 0.6 10^3/uL (0.0-1.0); MONOCYTES % (AUTO) 9.2 %; NEUTROPHILS % (AUTO) 58.1 %; PLT - PLATELET COUNT 331 10^3/uL (130-450); RED BLOOD COUNT 4.19 10^6/uL (4.20-5.40); RED CELL DISTRIBUTION WIDTH 13.4 % (12.0-15.0); WHITE BLOOD COUNT 6.9 x10^3/uL (4.8-10.8)
[2022-09-16 18:34] LABS: ALBUMIN 4.5 g/dL (3.2-5.5); ALBUMIN/GLOBULIN RATIO 1.3 (1.0-2.2); ALKALINE PHOSPHATASE 70 IU/L (42-121); ALT ALANINE AMINOTRANSFERASE 25 IU/L (10-60); AST ASPARTATE AMINOTRANSFERASE 24 IU/L (10-42); BILIRUBIN,TOTAL 0.2 mg/dL (0.2-1.0); BUN - BLOOD UREA NITROGEN 24 mg/dL (6-20); CALCIUM 9.5 mg/dL (8.5-10.3); CARBON DIOXIDE - CO2 28 mmol/L (21-32); CHLORIDE 100 mmol/L (101-111); CHOL/HDL RATIO 2.9 (<4.4); CHOLESTEROL 181 mg/dL; CREATININE 0.9 mg/dL (0.4-1.0); GFR - MDRD 66 (>89); GLUCOSE 95 mg/dL (70-100); HDL CHOLESTEROL 63 mg/dL; LDL CHOLESTEROL,CALCULATED 102 mg/dL; LDL/HDL RATIO 1.6 (<4.4); POTASSIUM 4.2 mmol/L (3.5-5.0); SODIUM 136 mmol/L (135-145); THYROID STIMULATING HORMONE 0.78 uIU/mL (0.34-5.60); TOTAL PROTEIN 8.1 g/dL (6.7-8.2); TRIGLYCERIDES 82 mg/dL; VLDL CHOLESTEROL 16 mg/dL
== END 2022-09-16 16:06 | disposition home or self-care (01) ==
LOC: LAB.N 16:05
PROVIDERS: ATTEND Family Medicine
DX: K29.70 Gastritis, unspecified, without bleeding (principal); M25.60 Stiffness of unspecified joint, not elsewhere classified; K21.9 Gastro-esophageal reflux disease without esophagitis; Z85.79 Personal history of other malignant neoplasms of lymphoid, hematopoietic and related tissues; F41.9 Anxiety disorder, unspecified; Z85.72 Personal history of non-Hodgkin lymphomas
CPT/HCPCS: 36415; 80050; 80061; 83721

== ENCOUNTER 2022-10-08 12:26 | Outpatient (CLI) | payer MEDICAID ==
--- NOTE | 2022-10-09 09:56 | Mammography Report ---
UNILATERAL RIGHT DIGITAL DIAGNOSTIC MAMMOGRAM 3D/2D WITH SPOT COMPRESSION: 10/08/2022 CLINICAL: Patient returns today to evaluate a focal asymmetry in the right breast. Comparison is made to exams dated: 09/16/2022 mammogram, 01/28/2021 mammogram, 01/02/2021 mammogram, mammogram - [facility], 12/29/2016 mammogram, and 01/16/2016 mammogram - [facility]. The right breast is heterogeneously dense, which may obscure small masses (category c / 51-75% glandu lar tissue). The previously described new 0.6 cm oval equal density focal asymmetry in the right breast at 6 o'isidoro ck anterior depth is seen in today's additional views. No other significant masses or calcifications are seen in the breast. IMPRESSION: INCOMPLETE: NEEDS ADDITIONAL IMAGING EVALUATION The 0.6 cm oval equal density focal asymmetry in the right breast resembles a cyst or a lymph node an d is indeterminate. An ultrasound is recommended for further evaluation and is scheduled to immediat nayana follow this examination. This exam was interpreted at Station ID: [id number]. NOTE: For mammograms, a report in lay terms will be sent to the patient. Approximately 15% of breast malignancies will not be visualized mammographically. In the management of a palpable breast mass, a negative mammogram must not discourage biopsy of a clinically suspicious lesion. Electronically Signed By: Salvador Conroy M.D. aty/:10/08/2022 13:04:58 ACR BI-RADS Category 0: Incomplete 3340F PARENCHYMAL PATTERN: (D) - The breast(s) demonstrate(s) heterogeneously dense fibroglandular paraurea alvarenga. BI-RADS CATEGORY: (0) - 0 Ultrasound [id number] Immediate follow-up LATERALITY: (R)
--- NOTE | 2022-10-09 09:56 | Ultrasound Report ---
LIMITED ULTRASOUND OF RIGHT BREAST: 10/08/2022 CLINICAL: Patient returns today to evaluate a focal asymmetry in the right breast. Comparison is made to exams dated: 10/08/2022 mammogram, 09/16/2022 mammogram, 01/02/2021 mammogram, 09/13/2018 mammogram - [facility], 12/29/2016 mammogram, and 01/16/2016 mammogram - [facility]. Color flow ultrasound of the right breast 6 o'clock region was performed. Lopez scale images of the r eal-time examination were reviewed. There is a 0.6 cm x 0.2 cm x 0.6 cm cluster of cysts with smooth internal biggs in the right breast a t 6 o'clock anterior depth 5 cm from the nipple. This cluster of cysts is hypoechoic with internal e choes. This correlates with mammography findings. Color flow imaging demonstrates that there is no vascularity present. IMPRESSION: PROBABLY BENIGN The 0.6 cm x 0.2 cm x 0.6 cm cluster of cysts in the right breast is probably benign. A follow-up right mammogram and right ultrasound in 6 months is recommended to demonstrate stability. Findings and recommendations were conveyed to the patient during today's evaluation. This exam was interpreted at Station ID: [id number]. Electronically Signed By: Salvador Conroy M.D. aty/:10/08/2022 13:26:25 Ultrasound BI-RADS: 3 Probably benign BI-RADS CATEGORY: (3) - 3 Mammo and [place] [id number] 6 month follow-up LATERALITY: (R)
== END 2022-10-08 12:27 | disposition home or self-care (01) ==
LOC: DI 12:26
PROVIDERS: ATTEND Family Medicine
DX: R92.8 Other abnormal and inconclusive findings on diagnostic imaging of breast (principal); N60.11 Diffuse cystic mastopathy of right breast

== ENCOUNTER 2023-01-18 16:20 | Outpatient (CLI) | payer MEDICAID ==
[2023-01-18 20:25] LABS: BASOPHILS # (AUTO) 0.1 10^3/uL (0.0-0.1); BASOPHILS % (AUTO) 1.1 %; EOSINOPHILS # (AUTO) 0.2 10^3/uL (0.0-0.7); EOSINOPHILS % (AUTO) 2.1 %; HCT - HEMATOCRIT 38.3 % (37.0-47.0); HGB - HEMOGLOBIN 11.9 g/dL (12.0-16.0); LYMPHOCYTES # (AUTO) 1.9 10^3/uL (1.5-3.5); LYMPHOCYTES % (AUTO) 26.5 %; MEAN CORPUSCULAR HEMOGLOBIN 28.5 pg (27.0-31.0); MEAN CORPUSCULAR HGB CONC 31.1 g/dL (32.0-36.0); MEAN CORPUSCULAR VOLUME 91.8 fL (81.0-99.0); MEAN PLATELET VOLUME 10.4 fL (7.9-10.8); MONOCYTES # (AUTO) 0.7 10^3/uL (0.0-1.0); NEUTROPHILS # (AUTO) 4.4 10^3/uL (1.5-6.6); NEUTROPHILS % (AUTO) 61.2 %; PLT - PLATELET COUNT 312 10^3/uL (130-450); RED BLOOD COUNT 4.17 10^6/uL (4.20-5.40); RED CELL DISTRIBUTION WIDTH 13.1 % (12.0-15.0); WHITE BLOOD COUNT 7.2 x10^3/uL (4.8-10.8)
[2023-01-18 20:34] LABS: ALBUMIN 4.1 g/dL (3.2-5.5); ALBUMIN/GLOBULIN RATIO 1.1 (1.0-2.2); ALKALINE PHOSPHATASE 66 IU/L (42-121); ALT ALANINE AMINOTRANSFERASE 46 IU/L (10-60); AST ASPARTATE AMINOTRANSFERASE 32 IU/L (10-42); BILIRUBIN,TOTAL < 0.2 mg/dL (0.2-1.0); BUN - BLOOD UREA NITROGEN 18 mg/dL (6-20); CARBON DIOXIDE - CO2 29 mmol/L (21-32); CHLORIDE 99 mmol/L (101-111); CREATININE 0.6 mg/dL (0.4-1.0); GFR - MDRD 105 (>89); GLUCOSE 110 mg/dL (70-100); POTASSIUM 4.1 mmol/L (3.5-5.0); SODIUM 135 mmol/L (135-145); TOTAL PROTEIN 7.7 g/dL (6.7-8.2)
[2023-01-18 20:48] LABS: THYROID STIMULATING HORMONE 1.11 uIU/mL (0.34-5.60)
== END 2023-01-18 16:21 | disposition home or self-care (01) ==
LOC: LAB.N 16:20
PROVIDERS: ATTEND Family Medicine
DX: E88.89 Other specified metabolic disorders (principal)
CPT/HCPCS: 36415; 80050

== ENCOUNTER 2023-04-23 08:26 | Outpatient (CLI) | payer MEDICAID ==
--- NOTE | 2023-04-26 11:48 | Mammography Report ---
UNILATERAL RIGHT DIGITAL DIAGNOSTIC MAMMOGRAM 3D/2D: 04/23/2023 CLINICAL: Patient returns for a 6 month follow up of the right breast. Comparison is made to exams dated: 10/08/2022 mammogram, 09/16/2022 mammogram, 01/28/2021 mammogram, a nd 01/02/2021 mammogram - [facility]. The right breast is heterogeneously dense, which may obscure small masses (category c / 51-75% glandu lar tissue). There is a stable oval focal asymmetry in the right breast at 6 o'clock anterior depth. No other significant masses or calcifications are seen in the breast. IMPRESSION: INCOMPLETE: NEEDS ADDITIONAL IMAGING EVALUATION The stable oval focal asymmetry in the right breast is indeterminate. A targeted ultrasound is recommended and will immediately follow. Based on the Tyrer Cuzick model (a risk assessment model) the patients lifetime risk is 15.5% and he r 10 year risk is 4.3%. According to the ACR, ACS, and NCCN guidelines, an annual breast MRI exam eliz ng with mammogram is recommended if the patients lifetime risk is 20% or greater. This exam was interpreted at Station ID: [id number]. NOTE: For mammograms, a report in lay terms will be sent to the patient. Approximately 15% of breast malignancies will not be visualized mammographically. In the management of a palpable breast mass, a negative mammogram must not discourage biopsy of a clinically suspicious lesion. Electronically Signed By: Enrique Clark M.D. slc/:04/23/2023 09:45:56 ACR BI-RADS Category 0: Incomplete 3340F PARENCHYMAL PATTERN: (D) - The breast(s) demonstrate(s) heterogeneously dense fibroglandular justin alvarenga. BI-RADS CATEGORY: (0) - 0 Ultrasound [id number] Immediate follow-up LATERALITY: (B)
--- NOTE | 2023-04-26 11:48 | Ultrasound Report ---
LIMITED ULTRASOUND OF RIGHT BREAST: 04/23/2023 CLINICAL: Short term follow up of the right breast. Comparison is made to exams dated: 04/23/2023 mammogram, 10/08/2022 ultrasound, 10/08/2022 mammogram, and 09/16/2022 mammogram - [facility]. Color flow and real-time ultrasound of the right breast 6 o'clock region were performed. Lopez scale images of the real-time examination were reviewed. There is a 0.6 cm x 0.6 cm x 0.2 cm cluster of cysts in the right breast at 6 o'clock anterior depth 5 cm from the nipple. This cluster of cysts is anechoic and hypoechoic. These abnormalities are not significantly changed and correlates with mammography findings. Color flow imaging demonstrates david t there is no vascularity present. IMPRESSION: PROBABLY BENIGN The 0.6 cm cluster of cysts in the right breast is probably benign. A follow-up mammogram and an ultrasound in 6 months is recommended to demonstrate stability. Patient will be due for left breast mammogram at that time. Exam findings were conveyed to the patient. This exam was interpreted at Station ID: [id number]. Electronically Signed By: Enrique Clark M.D. slc/:04/23/2023 09:51:44 Ultrasound BI-RADS: 3 Probably benign BI-RADS CATEGORY: (3) - 3 Mammo and [place] [id number] 6 month follow-up LATERALITY: (B)
== END 2023-04-23 08:27 | disposition home or self-care (01) ==
LOC: DI 08:26
PROVIDERS: ATTEND Family Medicine
DX: N60.11 Diffuse cystic mastopathy of right breast (principal)

== ENCOUNTER 2023-11-29 17:04 | Outpatient (CLI) | payer OTHER ==
[2023-11-29 17:28] LABS: BASOPHILS # (AUTO) 0.1 10^3/uL (0.0-0.1); BASOPHILS % (AUTO) 1.2 %; EOSINOPHILS # (AUTO) 0.2 10^3/uL (0.0-0.7); EOSINOPHILS % (AUTO) 3.3 %; HCT - HEMATOCRIT 36.4 % (37.0-47.0); HGB - HEMOGLOBIN 11.4 g/dL (12.0-16.0); LYMPHOCYTES # (AUTO) 1.6 10^3/uL (1.5-3.5); LYMPHOCYTES % (AUTO) 27.4 %; MEAN CORPUSCULAR HEMOGLOBIN 28.8 pg (27.0-31.0); MEAN CORPUSCULAR HGB CONC 31.3 g/dL (32.0-36.0); MEAN CORPUSCULAR VOLUME 91.9 fL (81.0-99.0); MEAN PLATELET VOLUME 9.9 fL (7.9-10.8); MONOCYTES # (AUTO) 0.7 10^3/uL (0.0-1.0); MONOCYTES % (AUTO) 10.9 %; NEUTROPHILS # (AUTO) 3.4 10^3/uL (1.5-6.6); NEUTROPHILS % (AUTO) 57.2 %; PLT - PLATELET COUNT 309 10^3/uL (130-450); RED BLOOD COUNT 3.96 10^6/uL (4.20-5.40); RED CELL DISTRIBUTION WIDTH 12.9 % (12.0-15.0)
[2023-11-29 18:30] LABS: ALBUMIN 4.4 g/dL (3.2-5.5); ALBUMIN/GLOBULIN RATIO 1.5 (1.0-2.2); ALKALINE PHOSPHATASE 82 IU/L (42-121); ALT ALANINE AMINOTRANSFERASE 19 IU/L (10-60); AST ASPARTATE AMINOTRANSFERASE 22 IU/L (10-42); BILIRUBIN,TOTAL 0.3 mg/dL (0.2-1.0); BUN - BLOOD UREA NITROGEN 13 mg/dL (6-20); CALCIUM 9.2 mg/dL (8.5-10.3); CARBON DIOXIDE - CO2 27 mmol/L (21-32); CHLORIDE 103 mmol/L (101-111); CHOL/HDL RATIO 3.8 (<4.4); CHOLESTEROL 200 mg/dL; CREATININE 0.7 mg/dL (0.6-1.3); GFR - MDRD 88 (>89); GLUCOSE 96 mg/dL (74-104); HDL CHOLESTEROL 52 mg/dL; LDL CHOLESTEROL,CALCULATED 123 mg/dL; LDL/HDL RATIO 2.4 (<4.4); POTASSIUM 4.1 mmol/L (3.5-4.5); SODIUM 138 mmol/L (135-145); TOTAL PROTEIN 7.4 g/dL (6.4-8.9); TRIGLYCERIDES 127 mg/dL (48-352); VLDL CHOLESTEROL 25 mg/dL
[2023-11-29 22:00] LABS: ESTIMATED AVERAGE GLUCOSE 126 mg/dL (70-100)
== END 2023-11-29 17:05 | disposition home or self-care (01) ==
LOC: LAB 17:04
PROVIDERS: ATTEND Family Medicine
DX: K21.9 Gastro-esophageal reflux disease without esophagitis (principal); Z85.79 Personal history of other malignant neoplasms of lymphoid, hematopoietic and related tissues; F41.9 Anxiety disorder, unspecified
CPT/HCPCS: 36415; 80050; 80061; 83036; 83721

== ENCOUNTER 2023-12-23 07:58 | Outpatient (CLI) | payer OTHER ==
--- NOTE | 2023-12-23 15:59 | Ultrasound Report ---
LIMITED ULTRASOUND OF RIGHT BREAST: 12/23/2023 CLINICAL: Patient returns today to evaluate a focal asymmetry in the right breast. Comparison is made to exams dated: 12/23/2023 mammogram, 04/23/2023 ultrasound, 04/23/2023 mammogram, 09/22 ultrasound, 10/08/2022 mammogram, and 09/16/2022 mammogram - [facility]. Color flow ultrasound of the right breast 6 o'clock region was performed. Lopez scale images of the r eal-time examination were reviewed. There is a 0.4 cm x 0.4 cm x 0.5 cm cluster of cysts in the right breast at 6 o'clock anterior depth 5 cm from the nipple. These abnormalities are not significantly changed and correlates with mammogra phy findings. Color flow imaging demonstrates that there is no vascularity present. IMPRESSION: PROBABLY BENIGN The 0.4 cm x 0.4 cm x 0.5 cm cluster of cysts in the right breast is probably benign. Follow-up mamm ogram and ultrasound in 6 months is recommended. This exam was interpreted at Station ID: [id number]. Electronically Signed By: Aubrey Cannon M.D. lc/:12/23/2023 09:19:39 Ultrasound BI-RADS: 3 Probably benign BI-RADS CATEGORY: (3) - 3 Mammo and US [id number] 6 month follow-up LATERALITY: (B)
--- NOTE | 2023-12-23 15:59 | Mammography Report ---
BILATERAL DIGITAL DIAGNOSTIC MAMMOGRAM 3D/2D: 12/23/2023 CLINICAL: Patient returns for a 6 month follow up of the right breast, due for bilateral exam. Comparison is made to exams dated: 04/23/2023 mammogram, 10/08/2022 mammogram, 09/16/2022 mammogram, mammogram, 01/02/2021 mammogram, and 09/13/2018 mammogram - [facility]. Both breasts are heterogeneously dense, which may obscure small masses (category c / 51-75% glandular tissue). There is a stable oval focal asymmetry in the right breast at 6 o'clock anterior depth. No other significant masses, calcifications, or other findings are seen in either breast. IMPRESSION: INCOMPLETE: NEEDS ADDITIONAL IMAGING EVALUATION The stable oval focal asymmetry in the right breast is indeterminate. An ultrasound is recommended. Based on the Tyrer Cuzick model (a risk assessment model) the patient's lifetime risk is 15.5% and he r 10 year risk is 4.3%. According to the ACR, ACS, and NCCN guidelines, an annual breast MRI exam eliz ng with mammogram is recommended if the patients lifetime risk is 20% or greater. This exam was interpreted at Station ID: [id number]. NOTE: For mammograms, a report in lay terms will be sent to the patient. Approximately 15% of breast malignancies will not be visualized mammographically. In the management of a palpable breast mass, a negative mammogram must not discourage biopsy of a clinically suspicious lesion. Electronically Signed By: Aubrey Cannon M.D. lc/:12/23/2023 09:17:16 ACR BI-RADS Category 0: Incomplete 3340F PARENCHYMAL PATTERN: (D) - The breast(s) demonstrate(s) heterogeneously dense fibroglandular parenchy ma. BI-RADS CATEGORY: (0) - 0 Ultrasound [id number] Immediate follow-up LATERALITY: (B)
== END 2023-12-23 07:59 | disposition home or self-care (01) ==
LOC: DI 07:58
PROVIDERS: ATTEND Family Medicine
DX: R92.333 Mammographic heterogeneous density, bilateral breasts (principal); N60.11 Diffuse cystic mastopathy of right breast

== ENCOUNTER 2024-01-26 15:47 | Outpatient (CLI) | payer OTHER ==
--- NOTE | 2024-01-26 16:25 | Sleep Patient Instructions ---
Sleep Center Visit Summary - Patient Visit Information Reason for Visit: Initial consult for evaluation of sleep disordered breathing and other sleep issues. - Patient Instructions Instructions Attached: Sleep Study, Sleep Study Home Monitor Additional Instructions: You will be completing a sleep study, either an in-lab polysomnography (PSG) or home sleep study (HST). You will follow-up in the sleep care office after the sleep study is completed to hear the results and talk about therapy, if needed. You will be called by our office staff to schedule this appointment, but you may contact us with any questions. - Clinic Information Contact: [facility] [address] [place] [id number] [email or web address] T: [phone]
--- NOTE | 2024-01-26 16:32 | SLEEP CARE CONSULTATION ---
Information from patient questionnaire entered by Abraham Hansen. I have reviewed and concur with the information entered by Abraham Hansen. This document represents the service I personally performed and the decisions made by me, Radha Martinez ARNP. History of Present Illness Service Date and Time: 01/26/2024 1547 Reason for Visit: New patient Chief Complaint: reports: Snoring, Frequent awakenings at night Date of Onset: 2-3YRS Usual bedtime: 11PM Time it takes to fall asleep: QUICKLY Snores at night: Yes Observed to quit breathing while asleep: No Sleeps alone due to snoring: No Number of times waking at night: 2 Reasons for waking at night: reports: Choking, Snoring, Pain, Bathroom, Other (UNKNOWN). denies: Gasping for air Toss, Turn, or Twitch while sleeping: Yes Recalls having dreams: Yes Usually gets out of bed at: 2722-2536 Feels refreshed in the morning: No Morning headache: No Sleepy or fatigued during the day: Yes Ever fallen asleep while driving: No Takes day naps: No Dreams during day naps: Yes Prior sleep studies: No Additional HPI information: I had the pleasure of seeing TANYA BLANCAS today regarding the possibility of her having a sleep disorder. Her current complaints are snoring and frequent night awakenings. She says she has noticed that she is snoring according to and daughter. She has gained weight. She will hear choking sounds sometimes when she is falling asleep. No one has told her that she stopped breathing at night. She says her father was a loud snorer but he had surgery on his nose and this reduce his snoring. She states she does not wake up feeling rested in the morning. She is fatigued during the day but does not take naps. 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 Patient is and lives in . Have you smoked in the past 12 months: No Alcohol use: Yes Alcohol amount and frequency: RARELY ONCE IN 2 WEEK ONCE A MONTH Caffeine use: Yes Caffeine amount and frequency: 1 CUP MOSTLY DECALF Family History Family history of sleep disordered breathing: Yes Family Hx Sleep Apnea: Father: Snoring, Sibling: Snoring Allergies and Home Medications Known drug allergies: No Drug allergies reviewed: Yes Home medication list reviewed: Yes (as listed) Allergy and home medication list: Allergies No Known Drug Allergies Allergy (Verified 01/24/24 09:56) Home Medications Medication Instructions Recorded Confirmed Last Taken Type Meloxicam See Rx Instructions .ROUTE .COMPLEX 01/26/24 01/26/24 Unknown History Metoprolol Succinate [Toprol Xl] See Rx Instructions .ROUTE .COMPLEX 01/26/24 01/26/24 Unknown History Omeprazole See Rx Instructions .ROUTE .COMPLEX 01/26/24 01/26/24 Unknown History Semaglutide [Ozempic] See Rx Instructions .ROUTE .COMPLEX 01/26/24 01/26/24 Unknown History Review of Systems Weight gain over past 5 years: 50 Cardiovascular: reports: palpitations, leg or foot swelling. denies: high blood pressure Gastrointestinal: reports: heartburn Neurological: reports: gait or balance problems. denies: headaches Psychiatric: denies: anxiety, depression Ear/Nose/Throat: reports: sinus problems. denies: tonsillectomy Musculoskeletal: reports: joint pain, back pain, muscle pain or cramping, mobility problems Physical Exam Vital signs obtained and entered by: ABRAHAM Tapia MA Blood Pressure: 133/84 (LEFT ARM) Cuff size: long Heart Rate: 72 O2 Saturation: 98 Height: 5 ft 5.75 in Weight: 266 lb 3.2 oz Body Mass Index: 43.2 BMI Classification: Morbidly Obese Neck circumference: 15.5 Mouth and throat: narrow oropharynx Soft palate: long Hard palate: normal Uvula: normal Uvula visualization: 50% Mallampati Class II Tongue: enlarged in size with teeth whyte on lateral edges Tonsils: small Neck: normal w/o lymphadenopathy or thyromegaly Heart: regular rate and rhythm Lungs: clear bilaterally Impression and Plan 1. Suspected Obstructive Sleep Apnea-Hypopnea Syndrome, as suggested by a history of loud and irregular snoring, gasping or choking in sleep, frequent awakening during the night and unrefreshed sleep. Narrow oropharynx and obesity are common predisposing factors for obstructive sleep apnea-hypopnea syndrome. I recommend proceeding to polysomnography to confirm the diagnosis and to assess severity. If the patient has significant sleep disordered breathing, a manual CPAP titration study will also be performed to find the optimal treatment pressure. I informed the patient of what the sleep studies involve and after some discussion, obtained agreement to proceed. The pathophysiology of obstructive sleep apnea-hypopnea syndrome was discussed with the patient and health risks of cardiovascular and cerebrovascular disease if not treated. Risks of drowsy driving discussed in detail and patient advised to avoid long distance driving and to pullman car clerk at the first sign of drowsiness. Patient agreed to plan. * Schedule polysomnography +- manual CPAP titration study and return in 1-2 weeks after the study to discuss result and initiate therapy. * Avoid long distance driving or driving when feeling sleepy. * Avoid alcohol, sedative and muscle relaxant around bedtime. * Attempt to lose weight. * Review instructions provided by trained office staff on how to prepare for the sleep study. * Return for follow-up after sleep study completed. Counseling Topics: Weight loss health impact Follow up with Sleep Care in: other (after sleep study) Plan: PSG/HST Visit Type: In Office Time Spent with Patient (minutes): 32 Provider Statement: I spent 100% of the Face to Face Visit with the patient with greater than 50% spent counseling the patient and coordination of care.
[2024-01-26 16:38] VITALS: BP 133/84; O2SAT 98
== END 2024-01-26 15:48 | disposition home or self-care (01) ==
LOC: SC 15:47
PROVIDERS: ATTEND Nurse Practitioner Family
DX: G47.8 Other sleep disorders (principal); R06.83 Snoring; R09.89 Other specified symptoms and signs involving the circulatory and respiratory systems; E66.01 Morbid (severe) obesity due to excess calories; Z68.41 Body mass index [BMI] 40.0-44.9, adult
CPT/HCPCS: 99203; 99212

== ENCOUNTER 2024-03-21 07:15 | Outpatient (CLI) | payer OTHER ==
[2024-03-21 12:32] LABS: CALCIUM 9.5 mg/dL (8.5-10.3); CREATININE 0.8 mg/dL (0.6-1.3); POTASSIUM 4.5 mmol/L (3.5-4.5)
[2024-03-21 12:36] LABS: ESTIMATED AVERAGE GLUCOSE 126 mg/dL (70-100)
== END 2024-03-21 07:16 | disposition home or self-care (01) ==
LOC: LAB.N 07:15
PROVIDERS: ATTEND Family Medicine
DX: Z51.81 Encounter for therapeutic drug level monitoring (principal); E66.01 Morbid (severe) obesity due to excess calories; Z79.899 Other long term (current) drug therapy
CPT/HCPCS: 36415; 80048; 83036

== ENCOUNTER 2024-04-13 20:37 | Outpatient (CLI) | payer OTHER | END 2024-04-13 20:38 | disposition home or self-care (01) | LOC: SC 20:37 | PROVIDERS: ATTEND Nurse Practitioner Family | DX: G47.33 Obstructive sleep apnea (adult) (pediatric) (principal); G47.61 Periodic limb movement disorder; E66.01 Morbid (severe) obesity due to excess calories; Z68.41 Body mass index [BMI] 40.0-44.9, adult | CPT/HCPCS: 95810 ==

== ENCOUNTER 2024-05-04 11:04 | Outpatient (CLI) | payer OTHER ==
--- NOTE | 2024-05-04 11:01 | SLEEP CARE CONSULTATION ---
Information from patient questionnaire entered by Courtney Hansen. I have reviewed and concur with the information entered by Courtney Hansen. This document represents the service I personally performed and the decisions made by , Radha Martinez ARNP. History of Present Illness Service Date and Time: 05/04/2024 1040 Initial Helm Sleepiness Scale score: 5 (01/26/24) Current Helm Sleepiness Scale score: 3 (05/04/24) Additional HPI information: TANYA BLANCAS returns via video appointment today for follow up and results of the recently performed polysomnography. The sleep study done on 04/13/24 showed mild obstructive sleep apnea with an average AHI of 7.8 and bea oxygen saturation of 81%. She had severe PLMs that were not contributing to sleep fragmentation. I explained the pathophysiology behind obstructive sleep apnea. We then spent quite a bit of time discussing different treatment options. For mild obstructive sleep apnea, surgery and oral appliance are alternatives to nasal CPAP therapy but in moderate or severe cases, nasal CPAP is the most effective and reliable treatment. Because apnea is primarily in supine position, then positional management therapy could be effective. Methods discussed such as positioning with pillows, using a T-shirt with tennis balls in the back or commercial products that have a pillow format on back to prevent supine sleep. I reviewed the impact of weight changes on sleep apnea and strongly recommended losing weight. After some discussion, the patient opted to go with the oral appliance. Patient does not drink alcohol. Patient was cautioned about risks of drowsy driving until sleepiness symptoms resolve. Patient denies drowsy driving. Sleep Study - Results Type of Sleep Study: Polysomnography (COMPLETED 04/13/24) Prior sleep studies: No Polysomnography/Home Sleep Study results: IMPRESSION: The quality of the study is good. The patient had normal sleep efficiency. The sleep architecture was normal. Respiratory monitoring showed mild obstructive sleep apnea-hypopnea (AHI = 7.8) associated with frequent arousals, oxyhemoglobin desaturation and mild hypoxia (bea oxygen saturation of 81%). The respiratory events occurred almost exclusively during supine sleep (supine AHI = 15.5; non- supine = 3.84). Snore was light to loud in intensity. There was severe periodic leg movement of sleep not associated with sleep fragmentation. Cardiac rhythm was normal sinus rhythm without significant arrhythmia. No abnormal behavior (parasomnia) observed during the night. Allergies and Home Medications Known drug allergies: No Drug allergies reviewed: Yes Home medication list reviewed: Yes (no changes) Allergy and home medication list: Allergies No Known Drug Allergies Allergy (Verified 05/02/24 11:21) Review of Systems Review of systems same as previous: Yes (NO CHANGE) Physical Exam Vital signs obtained and entered by: COURTNEY Tapia MA Blood Pressure: 120/80 (PER PT) Height: 5 ft 6 in (PER PT) Weight: 260 lb (PER PT) Body Mass Index: 41.9 BMI Classification: Morbidly Obese Impression and Plan 1. Obstructive Sleep Apnea-Hypopnea Syndrome, mild, with lowest oxygen saturat ion of 81%. Obviously this is the cause of the patients symptoms of unrefreshed sleep, and excessive daytime sleepiness. Positive pressure therapy could benefit anxiety and gastric reflux. After some discussion, the patient opted to go with the oral appliance. A prescription was given to start process. She will come by the office to picker and packer this prescription and a list of dentists in the area that are certified in making oral appliances. I will have patient follow up in a month after using her new MAD device to check effectiveness of treatment. If reduction of symptoms and comfortable with treatment, a polysomnography will be ordered using the oral appliance to check efficacy of treatment. 2. Hypoxemia, mild, with a bea oxygen saturation of 81% and 1.6 minutes spent under 90%. The baseline oxygen saturation was normal with an average oxygen saturation of 93%. 3. Periodic limb movement, severe, that did not fragment patients sleep. Periodic limb movement of sleep (PLMS) is characterized by episodes of repetitive limb movements that occur during sleep and usually involve the lower limbs. The etiology is unknown. Caffeine can also aggravate PLMS and should be avoided. Sleep hygiene methods can also improve sleep as well as lifestyle changes such as regular exercise. Patient was advised that no treatment is needed at this time. If symptoms increase, then further evaluation is indicated. 4. Obesity, unspecified. Currently patients BMI is 41.9. Obesity increases the risk of apnea, CPAP pressure requirements and overall health risks especially cardiovascular and diabetes. Thus patient is advised to lose weight. * Oral appliance. * Attempt to lose weight. * Avoid supine sleep. * Return one month after oral device obtained. I will assess response to therapy at that time. Counseling Topics: Sleeping position, Weight loss health impact Prescriptions: Other (oral appliance) Plan: oral device and followup Visit Type: Telehealth Video Video Type: Doximity Patient Location: work Location of Provider: Office Patient agrees and consents to this telehealth visit type: Yes Time Spent with Patient (minutes): 24 Provider Statement: I spent 100% of the Telehealth Video Call with the patient with greater than 50% spent counseling the patient and coordination of care.
[2024-05-04 11:14] VITALS: BP 120/80
== END 2024-05-04 11:05 | disposition home or self-care (01) ==
LOC: SC 11:04
PROVIDERS: ATTEND Nurse Practitioner Family
DX: G47.33 Obstructive sleep apnea (adult) (pediatric) (principal); R09.02 Hypoxemia; G47.61 Periodic limb movement disorder; E66.01 Morbid (severe) obesity due to excess calories; Z68.41 Body mass index [BMI] 40.0-44.9, adult

== ENCOUNTER 2024-07-26 07:55 | Outpatient (CLI) | payer OTHER ==
--- NOTE | 2024-07-28 07:56 | Mammography Report ---
UNILATERAL RIGHT DIGITAL DIAGNOSTIC MAMMOGRAM 3D/2D: 07/26/2024 CLINICAL: Patient returns for a 6 month follow up of the right breast. Comparison is made to exams dated: 12/23/2023 mammogram, 04/23/2023 mammogram, 10/08/2022 mammogram, mammogram, 01/28/2021 mammogram, and 01/02/2021 mammogram - [facility]. The right breast is heterogeneously dense, which may obscure small masses (category c / 51-75% glandu lar tissue). There is a stable oval focal asymmetry in the right breast at 6 o'clock anterior depth. This finding is not significantly changed 10/08/2022. No other significant masses or calcifications are seen in th e breast. IMPRESSION: INCOMPLETE: NEEDS ADDITIONAL IMAGING EVALUATION The stable oval focal asymmetry in the right breast is indeterminate. An ultrasound is recommended f or further evaluation and is scheduled to immediately follow this examination. Based on the Tyrer Cuzick model (a risk assessment model) the patient's lifetime risk is 15.7% and he r 10 year risk is 4.6%. According to the ACR, ACS, and NCCN guidelines, an annual breast MRI exam eliz ng with mammogram is recommended if the patient's lifetime risk is 20% or greater. This exam was interpreted at Station ID: [id number]. NOTE: For mammograms, a report in lay terms will be sent to the patient. Approximately 15% of breast malignancies will not be visualized mammographically. In the management of a palpable breast mass, a negative mammogram must not discourage biopsy of a clinically suspicious lesion. Electronically Signed By: Leeann Morgan M.D., Ph.D. eb/:07/27/2024 13:46:32 ACR BI-RADS Category 0: Incomplete 3340F PARENCHYMAL PATTERN: (D) - The breast(s) demonstrate(s) heterogeneously dense fibroglandular parenchy ma. BI-RADS CATEGORY: (0) - 0 Ultrasound [id number] Immediate follow-up LATERALITY: (B)
--- NOTE | 2024-07-28 07:56 | Ultrasound Report ---
LIMITED ULTRASOUND OF RIGHT BREAST: 07/26/2024 CLINICAL: Patient returns for a 6 month follow up of the right breast. Comparison is made to exams dated: 07/26/2024 mammogram, 12/23/2023 ultrasound, 12/23/2023 mammogram, 2022 ultrasound, 04/23/2023 mammogram, and 10/08/2022 ultrasound - [facility]. Color flow ultrasound of the right breast 6 o'clock region was performed. Lopez scale images of the r eal-time examination were reviewed. There is a 0.4 cm x 0.3 cm x 0.5 cm oval hypoechoic mass with circumscribed margins in the right nick st at 6 o'clock, 5 cm from the nipple. These abnormalities are not significantly changed since 2021 and correlates with mammography findings. Color flow imaging demonstrates that there is no vascularity present. IMPRESSION: PROBABLY BENIGN Right breast 0.5 cm oval mass at 6 o'clock, not significantly changed since September 2022. Finding is probably benign. Recommend follow-up mammogram and ultrasound in 6 months to demonstrate over 2 year stability. Patient will be due for bilateral mammogram at that time. Findings and recommendations were conveyed to the patient during today's evaluation. This exam was interpreted at Station ID: [id number]. Electronically Signed By: Leeann Morgan M.D., Ph.D. eb/:07/27/2024 13:49:49 Ultrasound BI-RADS: 3 Probably benign BI-RADS CATEGORY: (3) - 3 Mammogram [id number] 6 month follow-up LATERALITY: (B)
== END 2024-07-26 07:56 | disposition home or self-care (01) ==
LOC: DI 07:55
PROVIDERS: ATTEND Family Medicine
DX: N63.15 Unspecified lump in the right breast, overlapping quadrants (principal); R92.331 Mammographic heterogeneous density, right breast